=== PATIENT | female | born 1960 | race Caucasian/White ===

== ENCOUNTER 2019-05-02 11:46 | Emergency (ER) | payer BC, SELFPAY ==
[2019-05-02 12:21] VITALS: BP 133/86; PULSE 64; RESP 16; TEMP 36.6; O2SAT 100
--- NOTE | 2019-05-02 13:00 | ED.GENADULT ---
HPI - General Adult General Chief complaint: Eye Problems Stated complaint: EYE INFECTION Time Seen by Provider: 05/02/19 13:02 Source: patient and RN notes reviewed Limitations: no limitations History of Present Illness HPI narrative: This is a 59 years old female presented office for evaluation of possible eye infection. Symptoms began 3 days ago with a little nodule underneath her right lower eyelid. The very next day she noticed her right lower lid is swelling with warm and tender to palpation. Denies visual changes. She does wear contacts and glasses. She is not diabetic. She tried warm compress for her symptoms. Denies facial trauma or injury. Denies history of MRSA. Related Data Home Medications Medication Instructions Recorded Confirmed atorvastatin 20 mg PO DAILY 05/02/19 05/02/19 levothyroxine 125 mcg PO DAILY 05/02/19 05/02/19 Allergies Allergy/AdvReac Type Severity Reaction Status Date / Time adhesive tape Allergy Unknown Rash Verified 05/02/19 12:18 TAPE AdvReac Unknown Rash Uncoded 05/02/19 12:18 Review of Systems Review of Systems: Narrative: CONSTITUTIONAL: Denies fever or feeling ill EYES: Denies visual changes, redness, discharge. ENT: Denies congestion CARDIOVASCULAR: Denies chest pain RESPIRATORY: Denies cough GASTROINTESTINAL: Denies abdominal pain, nausea, vomiting, diarrhea. GENITOURINARY: Denies urinary symptoms or discharge SKIN: Denies rash MUSCULOSKELETAL: Denies acute back pain NEUROLOGIC: Denies lightheaded PMFSH Family History Family History Father Hypertension Acute myocardial infarction, Onset Age: 52 Mother Acute myocardial infarction, Onset Age: 78 Other Diabetes mellitus Family history of malignant neoplasm Family history of malignant neoplasm of breast Social History Social History Smoking status: Never smoker Alcohol intake: current Comments At time of signature, I agree with nursing past medical, surgical, social and family history. There is no relevant family history pertinent to the presenting complaint. Exam Narrative: Exam Narrative: GENERAL: This is a well-nourished, well-developed patient, in no apparent distress. EYES: PERRL. Sclera clear/white. Right lower lid noted a tender papular with lower lide edematous and erythema. Vision is grossly intact. No orbital tenderness to palpation. EARS: External ears normal, auditory canals clear and without drainage, TMs normal without perforation. Hearing grossly intact. NECK: Neck supple, non-tender without lymphadenopathy, masses or thyromegaly. CARDIOVASCULAR: Regular rate and rhythm without murmurs, gallops, or rubs. RESPIRATORY: Clear to auscultation. Breath sounds equal bilaterally. No wheezes, rales, or rhonchi. GASTROINTESTINAL: Abdomen soft, non-tender, nondistended. Bowel sounds are active. No hepato-splenomegaly, or palpable masses. No guarding. NEURO: awake, alert, and oriented to person, place and time. There were no obvious focal neurologic abnormalities. Steady gait Agustin Coma Scale Eye Opening: Spontaneous 4 Agustin Coma Scale Motor: Obeys Commands 6 [place] Coma Scale Verbal: Oriented 5 Course Vital Signs Vital signs: Vital Signs Temperature 97.8 F 05/02/19 12:21 Pulse Rate 64 05/02/19 12:21 Respiratory Rate 16 05/02/19 12:21 Blood Pressure 133/86 05/02/19 12:21 Pulse Oximetry 100 05/02/19 12:21 Temperature 97.8 F 05/02/19 12:21 Pulse Rate 64 05/02/19 12:21 Respiratory Rate 16 05/02/19 12:21 Blood Pressure 133/86 05/02/19 12:21 Pulse Oximetry 100 05/02/19 12:21 Medical Decision Making MDM Narrative Medical decision making narrative: Discharge instructions reviewed with patient, as well as provided in writing per nursing staff. The instructions also include specific and strict return/GO TO THE ER as well as f/u infor
== END 2019-05-02 13:20 | disposition home or self-care (01) ==
PROVIDERS: Emergency Provider Nurse Practitioner; PCP Family Medicine
DX: H00.012 Hordeolum externum right lower eyelid (principal)
CPT/HCPCS: 99213; G0463

== ENCOUNTER 2020-02-14 16:14 | Emergency (ER) | payer BC, SELFPAY ==
[2020-02-14 16:20] VITALS: BP 139/82; PULSE 77; RESP 20; TEMP 37; O2SAT 100
--- NOTE | 2020-02-14 16:30 | ED.URI ---
HPI - URI/Sore Throat General Chief Complaint: Upper Respiratory Infection Stated Complaint: cough/drainage/sore throat Time Seen by Provider: 02/14/20 16:36 Source: patient and RN notes reviewed Mode of arrival: ambulatory Limitations: no limitations History of Present Illness HPI Narrative: 60-year-old female presents with concern for cough, nasal drainage, sore throat. Reports approximately 5 to 6 days of symptoms, reports symptoms worsened on Friday and Friday, and have started to improve. She reports cough lingers. She reports cough is productive. She denies fever, chills, body aches, sweats. Reports she has been taking Benadryl, Mucinex, cough suppressant with some relief. MD elicited complaint: sore throat Related Data Home Medications Medication Instructions Recorded Confirmed cholecalciferol (vitamin D3) 25 25 mcg PO DAILY 07/29/19 02/14/20 mcg (1,000 unit) capsule folic acid 800 mcg tablet 0.8 mg PO DAILY 07/29/19 02/14/20 glucosamine 375 dd-[id number]-[id number] 1 tablet PO DAILY tablet 07/29/19 02/14/20 no1 500 mg-C 15 mg-adrianna 0.5 mg tablet mecobalamin (vitamin B12) 1,000 1,000 mcg PO DAILY 07/29/19 02/14/20 mcg chewable tablet melatonin 5 mg capsule 5 mg PO HS cap 07/29/19 02/14/20 multivitamin 1 tablet PO DAILY 07/29/19 02/14/20 omega-3 fatty acids 1,000 mg 1,000 mg PO DAILY 07/29/19 02/14/20 capsule coenzyme Q10 10 mg capsule 10 mg PO ONCE 09/24/19 02/14/20 atorvastatin 20 mg PO DAILY 02/14/20 02/14/20 Allergies Allergy/AdvReac Type Severity Reaction Status Date / Time adhesive tape Allergy Unknown Rash Verified 02/14/20 16:47 TAPE AdvReac Unknown Rash Uncoded 02/14/20 16:47 Review of Systems Review of Systems: Narrative: CONSTITUTIONAL: Denies malaise, chills, sweats, or fever. EYES: Denies visual changes, redness, or discharge. ENT: Reports rhinorrhea, congestion, sore throat. Denies sinus pain, otalgia. CARDIOVASCULAR: Denies chest pain, palpitations, or edema. RESPIRATORY: Reports cough, chest congestion. Denies dyspnea. GASTROINTESTINAL: Denies abdominal pain, nausea, vomiting, diarrhea SKIN: Denies rash or itching. MUSCULOSKELETAL: Denies myalgia. NEUROLOGIC: Denies headache. All systems reviewed & are unremarkable except as noted in HPI and below PMFSH Past Medical History Medical History Acne Atopic dermatitis Hypothyroid Mixed hyperlipidemia Recurrent oral herpes simplex Vaginal polyp (~1973) removed Surgical History Surgical History H/O section 1984, 1986, 1988, 1990 H/O knee surgery (~2016) Bilateral suchondroplasty S/P breast lumpectomy (~1978) Family History Family History Father Hypertension Acute myocardial infarction, Onset Age: 52 Mother Acute myocardial infarction, Onset Age: 78 Other Diabetes mellitus Family history of malignant neoplasm Family history of malignant neoplasm of breast Social History Social History Smoking status: Never smoker Alcohol intake: current Comments At time of signature, agree with nursing past medical, surgical, social and family history. There is no relevant family history pertinent to the presenting complaint Exam Narrative: Exam Narrative: GENERAL: Well-appearing, well-nourished, and in no acute distress. HEAD: Normocephalic EYES: PERRLA, conjunctivae clear ENT: Nares clear, turbinates erythematous, clear discharge. Mucous membranes moist. TM pearly machado with sharp light reflex bilaterally; no tragal tenderness. Oropharynx mildly erythematous without lesions. Tonsils not enlarged and without exudate, no drooling, no hoarseness, no trismus, uvula midline. NECK: Supple. No lymphadenopathy CHEST: Clear to auscultation, breath sounds equal. No wheezing, rhonchi, rales,
== END 2020-02-14 17:10 | disposition home or self-care (01) ==
PROVIDERS: Emergency Provider Nurse Practitioner; PCP Family Medicine
DX: J40 Bronchitis, not specified as acute or chronic (principal); Z20.828 Contact with and (suspected) exposure to other viral communicable diseases; E03.9 Hypothyroidism, unspecified; E78.5 Hyperlipidemia, unspecified
CPT/HCPCS: 87081; 87804; 87880; 99213; G0463

== ENCOUNTER 2020-02-15 06:54 | Outpatient (NON) | payer BC, SELFPAY ==
[2020-02-15 19:16] LABS: SARS-CoV-2 RNA PCR Negative
== END 2020-02-15 06:55 ==
LOC: ANHCOVIDDT 07:12
PROVIDERS: PCP Family Medicine; Visit Provider Nurse Practitioner
DX: Z20.828 Contact with and (suspected) exposure to other viral communicable diseases (principal); J40 Bronchitis, not specified as acute or chronic
CPT/HCPCS: 87635; C9803; U0003

== ENCOUNTER 2020-06-28 10:24 | Outpatient (CLI) | payer OTHER, SELFPAY | END 2020-06-28 10:25 | disposition home or self-care (01) | LOC: ANHCOVIDVC 10:24 | PROVIDERS: PCP Family Medicine | DX: Z23 Encounter for immunization (principal) | CPT/HCPCS: 0001A; 91300 ==

== ENCOUNTER 2020-07-19 10:21 | Outpatient (CLI) | payer OTHER, SELFPAY | END 2020-07-19 10:22 | disposition home or self-care (01) | LOC: ANHCOVIDVC 10:21 | PROVIDERS: PCP Family Medicine | DX: Z23 Encounter for immunization (principal) | CPT/HCPCS: 0002A; 91300 ==

== ENCOUNTER 2020-11-28 10:30 | Outpatient (CLI) | payer BC, SELFPAY ==
--- NOTE | 2020-11-28 10:51 | EST_ITS ---
Patient Info Name: Dayna Loredo Age: 60 years : 1960 Gender: Female Ht: 68 in Wt: 180 lbs BSA: 2.00 m2 Exam Date: 11/28/2020 11:04 AM Exam Location: [facility] Stress Patient Status: Outpatient Admit Date: 11/28/2020 Staff Ordering Physician: Michelle Villasenor NP Attending Provider: Michelle Villasenor NP Exercise Technologist: Hue Kaplan RDCS Exercise Physician: Jose Reddy DO Exam Type: CA stress test treadmill Study Info Indications R06.00 - Dyspnea, unspecified A treadmill exercise stress test was performed. Summary 1. 1. Negative Neo exercise stress test for ischemic ST changes by ECG criteria. 2. 2. Good functional capacity, achieving 10 METs of workload. 3. 3. Appropriate HR response to exercise. 4. 4. Baseline hypertension. 5. 5. Appropriate HR recovery at 1 minute post exercise. 6. 6. No imaging with stress testing. 7. 7. Patient informed of the above results. Protocol: Neo Stress ECG Details Stage: REST Duration (min): 0 min : 48 sec Speed (mph): 0.0 Grade (%): 0 HR (bpm): 54 SBP (mmHg): 144 DBP (mmHg): 84 METS: --- Stage: REST Duration (min): 6 min : 6 sec Speed (mph): 0.0 Grade (%): 0 HR (bpm): 63 SBP (mmHg): 144 DBP (mmHg): 84 METS: --- Stage: STAGE 1 Duration (min): 1 min : 0 sec Speed (mph): 1.7 Grade (%): 10 HR (bpm): 103 SBP (mmHg): 144 DBP (mmHg): 84 METS: --- Stage: STAGE 1 Duration (min): 2 min : 0 sec Speed (mph): 1.7 Grade (%): 10 HR (bpm): 115 SBP (mmHg): 144 DBP (mmHg): 84 METS: --- Stage: STAGE 1 Duration (min): 3 min : 0 sec Speed (mph): 1.7 Grade (%): 10 HR (bpm): 109 SBP (mmHg): 160 DBP (mmHg): 77 METS: --- Stage: STAGE 2 Duration (min): 1 min : 0 sec Speed (mph): 2.5 Grade (%): 12 HR (bpm): 125 SBP (mmHg): 160 DBP (mmHg): 77 METS: --- Stage: STAGE 2 Duration (min): 2 min : 0 sec Speed (mph): 2.5 Grade (%): 12 HR (bpm): 130 SBP (mmHg): 183 DBP (mmHg): 84 METS: --- Stage: STAGE 2 Duration (min): 3 min : 0 sec Speed (mph): 2.5 Grade (%): 12 HR (bpm): 132 SBP (mmHg): 183 DBP (mmHg): 84 METS: --- Stage: STAGE 3 Duration (min): 1 min : 0 sec Speed (mph): 3.4 Grade (%): 14 HR (bpm): 141 SBP (mmHg): 200 DBP (mmHg): 89 METS: --- Stage: STAGE 3 Duration (min): 2 min : 0 sec Speed (mph): 3.4 Grade (%): 14 HR (bpm): 144 SBP (mmHg): 200 DBP (mmHg): 89 METS: --- Stage: STAGE 3 Duration (min): 2 min : 0 sec Speed (mph): 3.4 Grade (%): 14 HR (bpm): 145 SBP (mmHg): 200 DBP (mmHg): 89 METS: --- Stage: RECOVERY Duration (min): 0 min : 59 sec Speed (mph): 0.0 Grade (%): 0 HR (bpm): 118 SBP (mmHg): 203 DBP (mmHg): 87 METS: --- Stage: RECOVERY Duration (mi
== END 2020-11-28 10:31 | disposition home or self-care (01) ==
LOC: ANHCARD 10:32
PROVIDERS: PCP Family Medicine; Visit Provider Nurse Practitioner Family
DX: R06.00 Dyspnea, unspecified (principal)
CPT/HCPCS: 93017

== ENCOUNTER → 2022-02-12 12:21 | Outpatient (CLI) | payer BC, SELFPAY ==
--- NOTE | ~2022-02-12 | MM_ITS ---
EXAMINATION: MM screening [facility] BI w bimal HISTORY: Screening mammogram TECHNIQUE: Craniocaudal and mediolateral oblique 3-D tomosynthesis images were obtained and synthetic 2-D images were generated. CAD analysis was submitted and interpreted. COMPARISON: 09/23/2018 BREAST PARENCHYMAL COMPOSITION: There are scattered areas of fibroglandular density. FINDINGS: RIGHT BREAST: An asymmetry is present in the posterior third of the breast in line with the nipple ax is on the craniocaudal view. LEFT BREAST: No suspicious mass, calcification, or architectural distortion are identified to suggest malignancy. There has been no suspicious interval change. IMPRESSION: 1. Right breast asymmetry. 2. Additional mammographic views and possible breast ultrasound are recommended. BI-RADS Category 0: Incomplete: Needs additional imaging evaluation. Reviewed, dictated and finalized at location A. [facility] IMPRESSION: 1. Right breast asymmetry. 2. Additional mammographic views and possible breast ultrasound are recommended . BI-RADS Category 0: Incomplete: Needs additional imaging evaluation.
--- NOTE | ~2022-02-12 | DEXA_ITS ---
Bone Density Report Name: CATHERINE GARCIA Age: 62 Sex: Female Ethnicity: White Date of : 1960 Indication: postmenopausal; screening for osteoporosis; height loss; Referring Provider: Jeannie Hernandez Study: Bone densitometry was performed. Exam Date: February 12, 2022 Accession number: [id number] Bone Density: Region BMD T-score Z-score Classification AP Spine (L1-L4) 1.245 1.8 3.4 Normal Femoral Neck (Left) 0.830 -0.2 1.2 Normal Total Hip (Left) 0.989 0.4 1.5 Normal Femoral Neck (Right) 0.824 -0.2 1.2 Normal Total Hip (Right) 0.982 0.3 1.4 Normal Total Hip Mean 0.986 0.4 1.5 Normal World Health Organization criteria for BMD impression classify patients as: Normal (T-score at or above -1.0), Osteopenia (T-score between -1.0 and -2.5), or Osteoporosis (T-score at or below -2.5). 10-year Fracture Risk: FRAX not reported because: All T-scores for Spine Total, Hip Total, Femoral Neck at or above -1.0 Clinical Information Provided by Patient: Has used the following medications: Vitamin D, Calcium Patient maximum height was 68 Menopause Age: 54 Drinks caffeinated beverages Onset of menses at age 13 Number of children 4 Impression: The patient has normal bone mass. Discussion: BONE DENSITY IS ABOVE THE MINIMUM DESIRABLE LEVEL AT ALL SKELETAL SITES TESTED. This patient?s bone mineral density is above the minimum desirable level (T-score -1.0 or better) at all sites measured. The patient should follow a healthful lifestyle (good nutrition with adequate calcium and vitamin D, and appropriate weight-bearing exercise). Follow-Up: Consider repeating this study in 5 years or sooner if there is some new clinical indication. Reported by: [facility] on 02/12/2022 12:49:00 PM. Reviewed, dictated and finalized at location A. [facility]
== END ==
PROVIDERS: PCP Family Medicine; Visit Provider Nurse Practitioner
DX: Z12.31 Encounter for screening mammogram for malignant neoplasm of breast (principal); Z78.0 Asymptomatic menopausal state; R92.8 Other abnormal and inconclusive findings on diagnostic imaging of breast
CPT/HCPCS: 77063; 77067; 77080

== ENCOUNTER 2022-02-19 00:12 | Day surgery (SDC) | payer BC, SELFPAY ==
[2021-12-17 13:11] VITALS: BMI 22.1
--- NOTE | 2022-01-15 13:14 | PC.NURSE ---
Spoke with patient and confirmed new date and time for her procedure. No new medical hx or new medications to add to her chart.
--- NOTE | 2022-02-05 12:25 | PC.NURSE ---
Patient called and confirmed new date and time of procedure. Updated med list and medical hx.
--- NOTE | 2022-02-19 08:10 | WPDANESEPPF ---
Anes - Initial Pre Proc Eval Procedure: Operation Date: 02/19/22 10:30 Proposed Procedures p Screening Colonoscopy - Xander Casiano MD Date/Time: 02/19/22 08:10 Surgeon: Xander Casiano MD Pre Op Diagnosis: neoplasm screening Patient Data Age: 62 Gender: F Height: 1.73 m Weight: 66 kg Allergies Allergy/AdvReac Type Severity Reaction Status Date / Time adhesive tape AdvReac Unknown Rash Verified 02/19/22 09:18 Home Medications Medication Instructions Recorded Confirmed Type melatonin 5 mg capsule 5 mg PO HS 07/29/19 02/19/22 History acyclovir 5 % topical ointment See Rx Instructions .Route 07/24/20 02/19/22 Rx .COMPLEX #30 grams acyclovir 400 mg tablet 400 mg PO TID PRN fever blister 10/22/21 02/19/22 Rx #30 tabs atorvastatin 20 mg tablet 20 mg PO DAILY #90 tabs 10/22/21 02/19/22 Rx clobetasol 0.05 % topical ointment See Rx Instructions .Route 10/22/21 02/19/22 Rx .COMPLEX #60 grams levothyroxine 125 mcg tablet 125 mcg PO DAILY #90 ea 10/22/21 02/19/22 Rx sulfacetamide sodium (acne) 10 % 1 applic topical BID Acne #118 mL 10/22/21 02/19/22 Rx lotion (suspension) citalopram 10 mg tablet 10 mg PO DAILY #30 tabs 01/29/22 02/19/22 Rx Patient hx anesthesia problems: none Family hx anesthesia problems: none Results Review: All pre-operative results and documents have been reviewed as part of the pre-operative evaluation. [facility] Past Medical History Medical History Acne Atopic dermatitis Hypothyroid Mixed hyperlipidemia Recurrent oral herpes simplex Surgical History Surgical History H/O section 1984, 1986, 1988, 1990 H/O knee surgery (~2016) Bilateral suchondroplasty S/P breast lumpectomy (~1978) Family History Family History Father Hypertension Acute myocardial infarction, Onset Age: 52 Mother Acute myocardial infarction, Onset Age: 78 Sibling Achalasia Other Diabetes mellitus Family history of malignant neoplasm Family history of malignant neoplasm of breast Social History Social History Smoking status: Never smoker Alcohol intake: current Drinks per week: 6 Substance use: never Substance use type: does not use Lack of Transportation: No Lack of Food: Never True Current Housing: I Have Housing Concerned About Future Housing: No Difficulty Paying Gas/Electric Bills: No Difficulty Paying for Meds: No Currently Unemployed: No Education: Master's Degree or Higher Difficulty w/ Childcare or Family Care: No Living arrangements: with family Additional living arrangements comments: Gender identity (if verbalized by the patient): Female Sexual Orientation (if Verbalized by the Patient): Straight or Heterosexual Spiritual care concerns: No Agree to blood products: Yes Anes - Eval Final PreProcedure Day of Procedure 02/19/22 08:10 Patient weight: normal Heart: regular rate and rhythm Lungs: clear to auscultation and normal air movement Airway: Mallampati scale class II Neurological: alert and oriented Last oral intake: >/= 8 hours ASA classification: II Emergent: no Anesthetic plan: proceed Anesthesia type and monitoring: general GIVS and standard monitoring Results Review: All pre-operative results and documents have been reviewed as part of the pre-operative evaluation. Informed Consent: The patient's anesthetic plan and its attendant risks and benefits were discussed with the patient/family/POA. Questions were solicited and answers provided to the satisfaction of the patient/family/POA.
[2022-02-19 09:08] VITALS: BP 102/48; PULSE 48; RESP 16; TEMP 36.3; O2SAT 100; BMI 22.0
[2022-02-19] MEDS: LACTATED RINGERS 1,000 ML 150 ML IV CONT (09:35)
--- NOTE | 2022-02-19 09:58 | PM.HPGS ---
History of Present Illness History of Present Illness Consent: Risks, benefits, and alternatives have been discussed and questions answered. Patient agrees to proceed with procedure. Chief complaint: neoplasm screening Narrative: Dayna Loredo is a 62 year old female here for screening colonoscopy, last one over 10 years ago Review of Systems Constitutional: Constitutional: Denies headache(s) and Denies weakness Eyes: Eyes: Denies blurry vision ENT: Reports Normal hearing present, Denies headache(s) and Denies neck pain Cardiovascular: Cardiovascular: Denies chest pain and Denies dyspnea Respiratory: Respiratory: Denies dyspnea Gastrointestinal: Gastrointestinal: Reports no additional gastrointestinal complaints Genitourinary: Genitourinary: Denies dysuria Musculoskeletal: Musculoskeletal: Denies neck pain Integumentary/Breasts: Skin/Breast: Denies dry skin Neurologic: Reports Normal hearing present, Denies headache(s) and Denies weakness Psychiatric: Psychiatric: Denies anxiety Endocrine: Endocrine: Denies change in body appearance Hematologic/Lymphatic: Hematologic/Lymphatic: Denies easy bleeding Allergic/Immunologic: Allergic/Immunologic: Denies urticaria PMFSH Past Medical History Medical History Acne Atopic dermatitis Hypothyroid Mixed hyperlipidemia Recurrent oral herpes simplex Surgical History Surgical History H/O section 1984, 1986, 1988, 1990 H/O knee surgery (~2017) Bilateral suchondroplasty S/P breast lumpectomy (~1978) Family History Family History Father Hypertension Acute myocardial infarction, Onset Age: 52 Mother Acute myocardial infarction, Onset Age: 78 Sibling Achalasia Other Diabetes mellitus Family history of malignant neoplasm Family history of malignant neoplasm of breast Social History Social History Smoking status: Never smoker Alcohol intake: current Drinks per week: 6 Substance use: never Substance use type: does not use Lack of Transportation: No Lack of Food: Never True Current Housing: I Have Housing Concerned About Future Housing: No Difficulty Paying Gas/Electric Bills: No Difficulty Paying for Meds: No Currently Unemployed: No Education: Master's Degree or Higher Difficulty w/ Childcare or Family Care: No Living arrangements: with family Additional living arrangements comments: Gender identity (if verbalized by the patient): Female Sexual Orientation (if Verbalized by the Patient): Straight or Heterosexual Spiritual care concerns: No Agree to blood products: Yes Meds Home Medications and Allergies Home Medications Medication Instructions Recorded Confirmed Type melatonin 5 mg capsule 5 mg PO HS 07/29/19 02/19/22 History acyclovir 5 % topical ointment See Rx Instructions .Route 07/24/20 02/19/22 Rx .COMPLEX #30 grams acyclovir 400 mg tablet 400 mg PO TID PRN fever blister 10/22/21 02/19/22 Rx #30 tabs atorvastatin 20 mg tablet 20 mg PO DAILY #90 tabs 10/22/21 02/19/22 Rx clobetasol 0.05 % topical ointment See Rx Instructions .Route 10/22/21 02/19/22 Rx .COMPLEX #60 grams levothyroxine 125 mcg tablet 125 mcg PO DAILY #90 ea 10/22/21 02/19/22 Rx sulfacetamide sodium (acne) 10 % 1 applic topical BID Acne #118 mL 10/22/21 02/19/22 Rx lotion (suspension) citalopram 10 mg tablet 10 mg PO DAILY #30 tabs 01/29/22 02/19/22 Rx Allergies Allergy/AdvReac Type Severity Reaction Status Date / Time adhesive tape AdvReac Unknown Rash Verified 02/19/22 09:18 Vital Signs Vital Signs - 24 hr 02/19/22 09:08 Temperature 97.3 F L Pulse Rate 48 L Respiratory Rate 16 Blood Pressure 102/48 L Pulse Oximetry 100 Oxygen Delivery Room Air
[2022-02-19 10:22] VITALS: BP 79/40; PULSE 58; RESP 21; O2SAT 100
[2022-02-19 10:32] VITALS: BP 80/41; PULSE 51; RESP 14; O2SAT 100
[2022-02-19 10:46] VITALS: BP 92/43; PULSE 51; RESP 22; O2SAT 100
== END 2022-02-19 10:50 | disposition home or self-care (01) ==
PROVIDERS: PCP Family Medicine; Visit Provider Internal Medicine Gastroenterology
PROC: 0DJD8ZZ Inspection of Lower Intestinal Tract, Via Natural or Artificial Opening Endoscopic (ICD-10-PCS; CPT 45378; principal; 2022-02-19 10:30)
DX: Z12.11 Encounter for screening for malignant neoplasm of colon (principal); K64.8 Other hemorrhoids; E78.2 Mixed hyperlipidemia; E03.9 Hypothyroidism, unspecified; B00.9 Herpesviral infection, unspecified
CPT/HCPCS: 45378; J2704; J7120

== ENCOUNTER → 2022-06-27 08:16 | Outpatient (CLI) | payer BC, SELFPAY ==
--- NOTE | ~2022-06-27 | MM_ITS ---
EXAMINATION: MM diagnostic [facility] RT w bimal HISTORY: Right breast asymmetry reported on 02/12/2022 screening mammogram examination TECHNIQUE: ML, MLO and CC 3-D tomosynthesis images of the right breast were performed and synthetic 2 -D images were generated. Rolled medial and rolled lateral craniocaudal views. CAD analysis was submi tted and interpreted. COMPARISON: 02/12/2022, 09/23/2018bilateral screening mammogram examinations FINDINGS: The asymmetry reported in the posterior third of the right breast in line with the nipple a xis on craniocaudal view is not confirmed on these additional views, consistent with composite shadow ing of overlapping fibroglandular stroma. IMPRESSION: 1. No mammographic evidence of malignancy 2. Routine mammographic screening is recommended BI-RADS Category 1: Negative Reviewed, dictated and finalized at location A.
== END ==
PROVIDERS: PCP Family Medicine; Visit Provider Family Medicine
DX: R92.8 Other abnormal and inconclusive findings on diagnostic imaging of breast (principal)
CPT/HCPCS: 77061; 77065; G0279

== ENCOUNTER 2024-02-10 11:26 | Outpatient (CLI) | payer MEDICARE, SELFPAY ==
--- NOTE | ~2024-02-10 | XR_ITS ---
XR hip BI 2V w AP pelvis Ordering provider: Epifanio Serra MD History: . M25.551 - Pain in right hip . Comparison: None. FINDINGS: BONES: No acute fracture or dislocation. Small bony fragment seen near to the left acetabulum most li windy old fracture. HIP JOINT SPACES: Normal. SACROILIAC JOINT SPACES/LUMBAR SPINE: The sacroiliac joint spaces are normal. Mild degenerative mcghee es of the visualized lower lumbar spine. PUBIC SYMPHYSIS: Pubic symphysitis. SOFT TISSUES: Normal. IMPRESSION: No acute osseous abnormality of the bilateral hips and pelvis. Reviewed, dictated and finalized at location A. [employer]
== END 2024-02-10 11:27 | disposition home or self-care (01) ==
LOC: GOSHIMG 11:26
PROVIDERS: PCP Family Medicine; Visit Provider Family Medicine
DX: M25.551 Pain in right hip (principal); M25.552 Pain in left hip
CPT/HCPCS: 73521

== ENCOUNTER 2024-06-15 12:57 | Outpatient (CLI) | payer MEDICARE, SELFPAY ==
--- NOTE | ~2024-06-15 | MR_ITS ---
MRI of the lumbar spine Clinical History: Back pain Technique: Axial T2-weighted images, and sagittal T1-weighted, T2-weighted, and T2 fat-sat images wer e acquired. Findings: There is 5 mm anterolisthesis of L4 over L5. There is 4 mm retrolisthesis of L5 over S1. No suspicious bone marrow signal abnormality seen. At L1-L2, there is moderate facet arthropathy without disc bulge or herniation. No spinal canal steno sis or definite neural foraminal narrowing. At L2-L3, there is moderate degenerative distended. There is mild disc bulge with moderate facet arth ropathy. No central canal stenosis. There is mild to moderate bilateral neural foraminal narrowing. At L3-L4, there is no disc bulge or herniation. There is severe facet arthropathy. No central canal s tenosis or definite neural foraminal narrowing. At L4-L5, there is diffuse disc bulge/uncovering and severe facet arthropathy. There is severe spinal canal stenosis/thecal sac compression. There is moderate bilateral neural foraminal narrowing. At L5-S1, there is advanced degenerative disc narrowing. There is mild disc bulge with moderate facet arthropathy. No central canal stenosis. There is severe bilateral neural foraminal narrowing. Paravertebral soft tissues are unremarkable. Impression: Severe degenerative spondylosis at L4-L5 and L5-S1, as detailed above. Moderate degenerative change in the remainder of the lumbar spine, as above. 4 mm retrolisthesis of L5 over S1. 5 mm anterolisthesis of L4 over L5. Reviewed, dictated and finalized at [facility]. Impression: Severe degenerative spondylosis at L4-L5 and L5-S1, as detailed above. Moderate degenerative change in the remainder of the lumbar spine, as above. 4 mm retrolisthesis of L5 over S1. 5 mm anterolisthesis of L4 over L5.
== END 2024-06-15 12:58 | disposition home or self-care (01) ==
LOC: MICIMG 12:58
PROVIDERS: PCP Family Medicine; Visit Provider Nurse Practitioner Family
DX: M47.816 Spondylosis without myelopathy or radiculopathy, lumbar region (principal)
CPT/HCPCS: 72148

== ENCOUNTER 2024-07-15 13:56 | Outpatient (CLI) | payer MEDICARE, SELFPAY ==
--- NOTE | ~2024-07-15 | MM_ITS ---
EXAMINATION: MM screening tia BI w bimal HISTORY: Screening TECHNIQUE: Craniocaudal and mediolateral oblique 3-D tomosynthesis images were obtained and synthetic 2-D images were generated. CAD analysis was submitted and interpreted. COMPARISON: Comparison to multiple prior studies sequentially, with oldest reviewed study dated 09/23. BREAST PARENCHYMAL COMPOSITION: Dense: The breasts are heterogeneously dense, which may obscure small masses FINDINGS: There is no evidence of suspicious mass, calcification, or architectural distortion to sugg est malignancy in either breast. There has been no suspicious interval change. IMPRESSION: 1. No mammographic evidence of malignancy. 2. Recommend routine screening mammography in one year. BI-RADS Category 1: Negative Reviewed, dictated and finalized at location A.
== END 2024-07-15 13:57 | disposition home or self-care (01) ==
LOC: MICIMG 13:57
PROVIDERS: PCP Family Medicine; Visit Provider Family Medicine
DX: Z12.31 Encounter for screening mammogram for malignant neoplasm of breast (principal)
CPT/HCPCS: 77063; 77067

== ENCOUNTER 2024-08-07 10:32 | Emergency (ER) | payer MEDICARE, SELFPAY ==
--- OUTSIDE RECORDS SUMMARY | 2024-08-07 10:34 | XMS_ITS | Clinical Summary ---
Author Organization [facility] Address [address] [place] [phone] Phone Care Team Providers Care Inventory Control Analyst Name Role Phone Unavailable Primary Care Provider Unavailabl e Allergies No known active allergies Medications Levothyroxine Sodium 100 MCG Capsule 100 mcg. 0 Active atorvastatin (LIPITOR) 20 MG Tablet 20 mg. 6 Active azithromycin (Zithromax Z-Jose Angel) 250 MG TabletIndicatio ns:Cough 2 tab(s) daily for 1 day, then 1 tab(s) daily for days 2-5. 6 Tab 0 Active methylPREDNISol one (Medrol) 4 MG Tablet Therapy PackIndications :Cough Use as per instructions on package. 21 Tab 0 Active promethazine-de xtromethorphan (PROMETHAZINE-D M) 6.25-15 MG/5ML SyrupIndication s:Cough Take 5 mL by mouth every 4 hours as needed for Cough. 240 mL 0 Active Active Problems No known active problems Social History Tobacco Use Types Packs/Day Years Used Date Smoking Tobacco: Never Smokeless Tobacco: Never Comments No Sex and Gender Information Value Date Recorded Sex Assigned at Not on file Legal Sex Female 7:38 PM CDT Gender Identity Not on file Sexual Orientation Not on file Last Filed Vital Signs Vital Sign Reading Time Taken Comments Blood Pressure 130/68 02/27/2020 4:03 PM CONDITIONING COACH Pulse 79 02/27/2020 4:03 PM CONDITIONING COACH Temperature 36.8 C (98.3 F) 02/27/2020 4:03 PM CONDITIONING COACH Respiratory Rate 20 02/27/2020 4:03 PM CONDITIONING COACH Oxygen Saturation 97% 02/27/2020 4:03 PM CONDITIONING COACH Inhaled Oxygen Concentration - - Weight 83.9 kg (185 lb) 02/27/2020 4:03 PM CONDITIONING COACH Height - - Body Mass Index - - Plan of Treatment Health Maintenance Due Date Last Done Comments Hepatitis C Virus (HCV) Screening 1960 TdaP Immunization 1960 Colonoscopy 01/21/2004 Colorectal Cancer Screening 01/21/2004 Cologuard 2009 Immunochemical Fecal Occult Blood 2009 Pneumococcal Immunization (5 0+ years) (1 of 1 - PCV) 2009 Zoster Immunization (1 of 2) 2009 Influenza Immunization (#1) 2023 01/08/2019 SARS-COV-2 Immunization ( season) 2023 02/05/2021, 07/19/2020, 06/28/2020 Respiratory Syncytial Virus (RSV) Immunization (Adult) (1 - 1-dose 75+ series) 2034 Hepatitis B Immunization Aged Out No longer eligible based on patient's age to complete this topic Meningococcal Immunization (ACWY) Aged Out No longer eligible b ased on patient's age to complete this topic Rotavirus Immunization Aged Out No lo nger eligible based on patient's age to complete this topic Insurance [facility]
--- OUTSIDE RECORDS SUMMARY | 2024-08-07 10:34 | XMS_ITS | Referral Summary ---
Author Organization [facility] Address [address] [place] [address] Care Team Providers Care Assistant Professor Of Life Sciences Name Role Phone Miscellaneous, Not In File Primary Care Provider Unavailable Allergies Active Allergy Reactions Criticality Noted Date Comments Adhesive Tape-Silicones Medications atorvastatin (LIPITOR) 20 mg tablet take 1 tablet by oral route every day 0 0 6 Active multivitamin,tx -minerals (VITAMINS AND MINERALS) tablet 0 0 Active levothyroxine sodium (TIROSINT) 100 mcg capsule 100 mcg. 0 0 Active lovastatin (MEVACOR) 40 mg tablet take 1 tablet (40MG) by ORAL route every day with evening meal 0 0 Active ibuprofen (ibuprofen) 200 mg tab/cap take 1 capsule by oral route every 6 hours as needed 0 0 4 Active Additional Information Patient taking differently:200 mgAs needed, Reported on 03/02/2019 meloxicam (MOBIC) 15 mg tablet take 1 tablet by oral route every day 30 2 4 Active acyclovir (ZOVIRAX) 400 mg tablet 9 Active Active Problems Problem Noted Date Diagnosed Date Primary osteoarthritis of knees, bilateral 01/19 Fracture of condyle of femur 04/05/2016 Overview (06/21/2016): Subchondral insufficiency fracture of condyle of right femur, with delayed healing, subsequent encounter Current tear of medial cartilage AND/OR meniscus of knee 02/06/2016 Overview (06/21/2016): Tear of medial meniscus of left knee, current, unspecified tear type, initial encounter Social History Tobacco Use Types Packs/Day Years Used Date Smoking Tobacco: Never Alcohol Use Standard Drinks/Week Comments Yes 0 (1 standard drink = 0.6 oz pur e alcohol) Comments Unknown Sex and Gender Information Value Date Recorded Sex Assigned at Not on file Legal Sex Female 10:02 AM VAPOR COATER Gender Identity Not on file Sexual Orientation Not on file Last Filed Vital Signs Vital Sign Reading Time Taken Comments Blood Pressure 110/68 04/05/2016 8:47 AM VAPOR COATER Pulse 54 12/19/2015 11:46 AM CDT Temperature - - Respiratory Rate - - Oxygen Saturation - - Inhaled Oxygen Concentration - - Weight 83.9 kg (185 lb) 03/02/2019 8:33 AM VAPOR COATER Height 172.7 cm (5' 7.99 ) 03/02/2019 8:33 AM CS T Body Mass Index 28.14 03/02/2019 8:33 AM VAPOR COATER Plan of Treatment Not on file Insurance [employer] Care Teams Assistant Professor Of Life Sciences Relationship Specialty Start Date End Date Miscellaneous, Not In File PCP - General 08/22/16
--- OUTSIDE RECORDS SUMMARY | 2024-08-07 10:34 | XMS_ITS | Clinical Summary ---
Author Organization [facility] Address [address] [place] [address] Care Team Providers Care Roll Forger Name Role Phone Miscellaneous, Not In File [...] knee, current, unspecified tear type, initial encounter Surgical History Surgery Date Site/Laterality Comments THYROIDECTOMY Thyroidectomy Medical History Medical History Date Comments Hx Other Medical breast lump rem mee left Hyperlipidemia Hyperlipidemia Hx Other Medical vaginal cyst re moved Disorder of thyroid Thyroid dise ase Osteoarthritis Osteoarthritis Hx Other Medical High Blood pres sure Hx Other Medical High cholestero l Family History Medical History Relation Name Comments Breast cancer Other 1 Family history of Cancer, breast; Diabetes Other 2 Family history of Diabetes mellitus; Heart disease Other 3 Family history of Heart disease; Hypertension Other 4 Family history of Hypertension; Arthritis Other 5 Family history of Arthritis; Other Other 6 Family history of High cholesterol; Thyroid disease Other 7 Family histo ry of Thyroid disorder; Relation Name Status Comments Other 1 Other 2 Other 3 Other 4 Other 5 Other 6 Other 7 Social History Tobacco Use Types Packs/Day Years Used Date Smoking Tobacco: Never Alcohol Use Standard Drinks/Week Comments Yes 0 (1 standard drink = 0.6 oz pur e alcohol) Comments Unknown Sex and Gender Information Value Date Recorded Sex Assigned at Not on file Legal Sex Female 10:02 AM VARNISH MELTER Gender Identity Not on file Sexual Orientation Not on file Obstetrics History Last Filed Vital Signs Vital Sign Reading Time Taken Comments Blood Pressure 110/68 04/05/2016 8:47 AM VARNISH MELTER Pulse 54 12/19/2015 11:46 AM CDT Temperature - - Respiratory Rate - - Oxygen Saturation - - Inhaled Oxygen Concentration - - Weight 83.9 kg (185 lb) 03/02/2019 8:33 AM VARNISH MELTER Height 172.7 cm (5' 7.99 ) 03/02/2019 8:33 AM CS T Body Mass Index 28.14 03/02/2019 8:33 AM VARNISH MELTER Plan of Treatment Not on file Insurance [facility] Care Teams Roll Forger Relationship Specialty Start Date End Date Miscellaneous, Not In File PCP - General 08/22/16
[2024-08-07 10:51] VITALS: BP 133/65; PULSE 68; RESP 16; TEMP 36.6; O2SAT 100
--- NOTE | 2024-08-07 11:55 | ED_ITS ---
HPI - Skin/Abscess/Foreign Bdy General Chief complaint: Skin/Abscess/Foreign Body Stated complaint: Rash Time Seen by Provider: 08/07/24 11:25 Source: patient and RN notes reviewed Mode of arrival: ambulatory Limitations: no limitations History of Present Illness HPI narrative: 64-year-old female presents Express Care complaining of rash on her body. Patient stated start approximately 1 week ago has been progressively worse. Patient was recently doing yd work outside and believe she was exposed to poison naye. Status started on her arms now it has spread throughout her neck, trunk, and face. She reports the rash is itchy. Patient has or an area of the rash covered in a bandage because it was weeping. Patient denies any pain, fevers, chills, or any other symptoms Related Data Home Medications ?Medication ?Instructions ?Recorded ?Confirmed ?Last Taken ?Type melatonin 5 mg capsule 5 mg PO HS 07/29/19 07/07/24 Unknown History sulfacetamide sodium (acne) 10 % 1 applic topical BID PRN Acne 02/10/24 07/07/24 Unknown History lotion (suspension) thyroid (pork) 30 mg tablet (DENTAL SCHEDULER 30 mg PO DAILY 07/07/24 07/07/24 Unknown History Thyroid) levothyroxine 125 mcg tablet mcg 08/07/24 Unknown History Allergies Allergy/AdvReac Type Severity Reaction Status Date / Time adhesive tape AdvReac Unknown Rash Verified 07/07/24 13:20 Review of Systems Review of Systems: CONSTITUTIONAL: Denies fever, chills, body aches, or sweats. EYES: Denies visual changes, redness, or discharge. ENT: Denies rhinorrhea, congestion, sore throat, or otalgia. CARDIOVASCULAR: Denies chest pain, palpitations, or edema. RESPIRATORY: Denies cough or dyspnea. GASTROINTESTINAL: Denies abdominal pain, nausea, vomiting, or diarrhea. GENITOURINARY: Denies dysuria or hematuria. SKIN: Positive for rash and itching. MUSCULOSKELETAL: Denies back pain, joint pain, or myalgia. NEUROLOGIC: Denies headache, numbness, or weakness. PSYCHIATRIC: Denies anxiety or depression. All other systems reviewed are negative, except as documented in HPI. COUNTS INCLUDE 234 BEDS AT THE [facility] Past Medical History Medical History Lumbar radiculopathy Lumbar spine pain Left hip pain Right hip pain Acne vulgaris Eczema Recurrent herpes labialis Abnormal mammogram of right breast (~01/2022) normal diagnostic Mixed hyperlipidemia Hypothyroid Atopic dermatitis Surgical History Surgical History H/O excision of epidermal inclusion cyst (~03/2019) upper back S/P breast lumpectomy (~1978) H/O knee surgery (~2016) Bilateral chondroplasty H/O section 1984, 1986, 1988, 1990 Family History Family History Father Hypertension Acute myocardial infarction, Onset Age: 52 Mother Acute myocardial infarction, Onset Age: 78 Sibling Achalasia Other Diabetes mellitus Family history of malignant neoplasm Family history of malignant neoplasm of breast Social History Social History Smoking status: Never smoker Alcohol intake: current Drinks per week: 6 Substance use: current Substance use type: marijuana Lack of Transportation: No Lack of Food: Never True Current Housing: I Have Housing Concerned About Future Housing: No Difficulty Paying Gas/Electric Bills: No Difficulty Paying for Meds: No Currently Unemployed: No Education: Master's Degree or Higher Difficulty w/ Childcare or Family Care: No Living arrangements: with family Additional living arrangements comments: Occupation/Education: occupation Additional occupation/education comments: Part-time Gender identity (if verbalized by the patient): Female Sexual Orientation (if Verbalized by the Patient): Straight or Heterosexual Spiritual care concerns: No Agree to blood products: Yes Comments At the time of my signature, I reviewed and agree with the nursing past medical, surgical, social, and family history. There is no relevant family history pe rtinent to the patient complaint. Exam Narrative: GENERAL: This is a well-nourished, well-developed adult, in no apparent distress. They are non ill-appearing, nontoxic appearing. HEAD: normocephalic, atraumatic. EYES: Sclera clear/white. Conjunctiva normal. Vision is grossly intact. Extraocular movements intact EARS: External ears normal,Hearing grossly intact. NOSE: External nose normal THROAT: Mucous membranes moist, CARDIOVASCULAR: Regular rate and rhythm RESPIRATORY: Respiratory rate normal, respiratory effort nonlabored, no respiratory distress SKIN: Pruritic, papular vesicular rash present to the patient's arms, trunk, and left side of her forehead near the scalp line. There is an area of swelling and erythema to the vesicular rash to the right distal forearm measuring approximately 2 cm x 2 cm. No area of fluctuance or induration. No streaking present. NEURO: awake, alert, and oriented to person, place and time. There were no obvious focal neurologic abnormalities. EXTREMITIES: No joint tenderness, effusion, or edema noted. Course Course Emergency Course: Portions of this record may have been created with voice recognition software Level of Care: Express Care Visit Vital Signs Vital signs: Vital Signs Temperature 97.8 F 08/07/24 10:51 Pulse Rate 68 08/07/24 10:51 Respiratory Rate 16 08/07/24 10:51 Blood Pressure 133/65 08/07/24 10:51 Pulse Oximetry 100 08/07/24 10:51 Oxygen Delivery Room Air 08/07/24 10:51 Temperature 97.8 F 08/07/24 10:51 Pulse Rate 68 08/07/24 10:51 Respiratory Rate 16 08/07/24 10:51 Blood Pressure 133/65 08/07/24 10:51 Pulse Oximetry 100 08/07/24 10:51 Oxygen Delivery Room Air 08/07/24 10:51 Reviewed MDM - Skin/Abscess/Foreign Bdy MDM Narrative Medical decision making narrative: Patient likely has developed a contact dermatitis from poison naye. Prescribed steroid Dosepak with prednisone. Will also prescribe mupirocin ointment to prevent any further bacterial infection due to the patient itching. Discussed physical exam findings. Advised supportive measures and signs/symptoms to go to the ER. Pt is appropriate for outpt treatment and f/u. Differential Diagnosis Differential diagnosis: Likely cellulitis, eczema and contact dermatitis Critical Care Time Critical Care Time Critical Care Time: No Discharge Plan Discharge Clinical Impression: Contact dermatitis Patient Disposition: Home Condition: Stable Instructions: Antibiotic Form, Poison Naye (ED) Additional Instructions: Take the prednisone as directed. Apply mupirocin ointment to the affected area as directed. You may buy nlxo-[id number] Tecnu soap at [employer] that may help with poison naye. Use as directed according to the bottle. Please follow- up PCP in 3-5 days. Developed worsening redness, swelling, discharge, fevers, or any other concerns please go to the ER immediately. Patient Language: [place] Prescriptions: New mupirocin calcium 2 % cream 1 applic topical BID 7 Days Qty: 30 0RF prednisone 10 mg tablets,dose pack See Taper PO DAILY 12 Days Qty: 42 0RF Taper: Prednisone Taper from 60 mg;12 days 60 mg DAILY for 2 Days and 0 Hour 50 mg DAILY for 2 Days and 0 Hour 40 mg DAILY for 2 Days and 0 Hour 30 mg DAILY for 2 Days and 0 Hour 20 mg DAILY for 2 Days and 0 Hour 10 mg DAILY for 2 Days and 0 Hour No Action levothyroxine 125 mcg tablet sulfacetamide sodium (acne) 10 % suspension 1 applic TOPICAL BID PRN (Reason: Acne) Rx Instructions: Apply to affected areas BID melatonin 5 mg capsule 5 mg PO HS thyroid (pork) [DENTAL SCHEDULER Thyroid] 30 mg tablet 30 mg PO DAILY clobetasol 0.05 % ointment See Rx Instructions .ROUTE .COMPLEX Qty: 60 1RF Dose Instruction: APPLY TOPICALLY TWICE A DAY 2 WEEKS NEEDED FOR ATOPIC DERMATITIS Rx Instructions: APPLY TOPICALLY TWICE A DAY 2 WEEKS NEEDED FOR ATOPIC DERMATITIS acyclovir 400 mg tablet 400 mg PO TID PRN (Reason: fever blister) Qty: 30 1RF Rx Instructions: Take 1 tab 3 times a day for 5 days as needed bupropion HCl [Wellbutrin XL] 150 mg tablet extended release 24 hr 150 mg PO QAM Qty: 90 1RF acyclovir 5 % ointment See Rx Instructions .ROUTE .COMPLEX Qty: 30 0RF Dose Instruction: APPLY TO AFFECTED AREA 6 IMES A DAY FOR 7 DAYS Rx Instructions: APPLY TO AFFECTED AREA 6 IMES A DAY FOR 7 DAYS Follow-up/Referrals: Epifanio Serra MD [Primary Care Provider] - Time of Disposition: 11:32
== END 2024-08-07 11:39 | disposition home or self-care (01) ==
PROVIDERS: PCP Family Medicine
DX: L25.9 Unspecified contact dermatitis, unspecified cause (principal); F12.90 Cannabis use, unspecified, uncomplicated; E03.9 Hypothyroidism, unspecified; E78.2 Mixed hyperlipidemia
CPT/HCPCS: 99213; G0463